=== PATIENT | female | born 1990 | race Caucasian/White ===

== ENCOUNTER 2017-06-23 16:35 | Emergency (ER) | payer OTHER ==
[2017-06-23] MEDS ORDERED: SODIUM CHLORIDE 0.9% 1,000 ML IV ONE (17:50)
[2017-06-23] MEDS ORDERED: SODIUM CHLORIDE 0.9% 1,000 ML IV SCH (18:00)
--- NOTE | 2017-06-23 18:14 | ED ---
General Adult HPI - General Chief complaint: GI Bleed Stated complaint: Hep A Exposure Time Seen by Provider: 06/23/17 17:36 Source: patient, RN notes reviewed, old records reviewed Mode of arrival: ambulatory Limitations: no limitations - History of Present Illness Initial comments: This is a 27-year-old female presents emergency Department chief complaint of diagnosis of hepatitis a. Patient reports that she was in the hospital 2 weeks before [place] diagnosed with pneumonia. She states she got a letter shortly afterward stating that she was positive for hepatitis A. Patient reports that she's had occasional diarrhea and generally feels ill. She states that [facility]. She informed them of a possible exposure to hepatitis A today and they sent her here for further evaluation. Patient reports that she's had some occasional diarrhea. Denies any vomiting, fevers or chills. She reports that she did get over pneumonia recently and has been doing somewhat better since that time. Patient is [facility] facility for history of heroin, cocaine, benzodiazepines and marijuana. - Related Data Home Medications Medication Instructions Recorded Confirmed No Known Home Medications [No 06/23/17 06/23/17 Known Home Medications] Allergies Allergy/AdvReac Type Severity Reaction Status Date / Time No Known Allergies Allergy Verified 06/23/17 18:51 Review of Systems ROS Statement: Those systems with pertinent positive or pertinent negative responses have been documented in the HPI. ROS Other: All systems not noted in ROS Statement are negative. Past Medical History Past Medical History: Pneumonia History of Any Multi-Drug Resistant Organisms: None Reported Past Surgical History: No Surgical Hx Reported Past Psychological History: No Psychological Hx Reported Smoking Status: Current every day smoker Past Alcohol Use History: None Reported Past Drug Use History: Heroin, IV Drug Use, Marijuana, Opiates General Exam - General Exam Comments Initial Comments: Well-appearing 27-year-old female. No distress. Limitations: no limitations General appearance: alert, in no apparent distress Head exam: Present: atraumatic, normocephalic, normal inspection Eye exam: Present: normal appearance, PERRL, EOMI. Absent: scleral icterus, conjunctival injection, periorbital swelling ENT exam: Present: normal exam, mucous membranes moist Neck exam: Present: normal inspection. Absent: tenderness, meningismus, lymphadenopathy Respiratory exam: Present: normal lung sounds bilaterally. Absent: respiratory distress, wheezes, rales, rhonchi, stridor Cardiovascular Exam: Present: regular rate, normal rhythm, normal heart sounds. Absent: systolic murmur, diastolic murmur, rubs, gallop, clicks GI/Abdominal exam: Present: soft, normal bowel sounds. Absent: distended, tenderness, guarding, rebound, rigid Extremities exam: Present: normal inspection, full ROM, normal capillary refill. Absent: tenderness, pedal edema, joint swelling, calf tenderness Back exam: Present: normal inspection Neurological exam: Present: alert, oriented X3, CN II-XII intact Psychiatric exam: Present: normal affect, normal mood Skin exam: Present: warm, dry, intact, normal color. Absent: rash Course Vital Signs 06/23/17 17:10 Temperature 98.2 F Pulse Rate 91 Respiratory 16 Rate Blood Pressure 119/72 O2 Sat by Pulse 100 Oximetry Medical Decision Making - Medical Decision Making This patient is a 27-year-old female presents today with possible exposure for hepatitis A. Patient was sent here from [facility] with a history of a letter given to her 2 weeks prior to [place] stating that she has positive for hepatitis A. At the same patient complained of some mild diarrhea. She also been Gen. fatigue and malaise. At this time I did complete some hammering give patient IV fluids. Patient liver enzymes are mildly elevated but no significant signs of acute hepatitis. Patient is not jaundiced. She has no abdominal tenderness and otherwise appears clinically well. I did do a send out hepatitis panel. At this time we're unable to get those results for approximately 2-3 days. I discussed the patient is not acutely symptomatic for hepatitis A. Discussed that she is out of the 2 week timeframe where you concerned for exposure to it. Patient's case discussed with Dr. Rodrigues. He recommended sending her back to [facility] will follow-up with the hepatitis panel. [facility] would not accept the patient that due to the unconfirmed diagnosis. Patient does not have any Lasix to stay in this area. We tried multiple times to contact [facility] for the patient to be able to get her things and they were on cooperative. Patient will be discharged at this time family will be picking her up. Patient advised to follow-up here a few days in regards to the hepatitis panel. Discussed that [facility]. - Lab Data Result diagrams: 06/23/17 18:18 06/23/17 18:18 Lab Results 06/23/17 06/23/17 Range/Units 18:18 18:18 WBC 10.3 (3.8-10.6) k/uL RBC 4.32 (3.80-5.40) m/uL Hgb 12.4 (11.4-16.0) gm/dL Hct 38.9 (34.0-46.0) % MCV 90.2 (80.0-100.0) fL MCH 28.7 (25.0-35.0) pg MCHC 31.8 (31.0-37.0) g/dL RDW 16.5 H (11.5-15.5) % Plt Count 322 (150-450) k/uL Neutrophils % 74 % Lymphocytes % 20 % Monocytes % 5 % Eosinophils % 0 % Basophils % 0 % Neutrophils # 7.6 (1.3-7.7) k/uL Lymphocytes # 2.0 (1.0-4.8) k/uL Monocytes # 0.5 (0-1.0) k/uL Eosinophils # 0.0 (0-0.7) k/uL Basophils # 0.0 (0-0.2) k/uL Anisocytosis Slight Sodium 138 (137-145) mmol/L Potassium 4.3 (3.5-5.1) mmol/L Chloride 101 (98-107) mmol/L Carbon Dioxide 27 (22-30) mmol/L Anion Gap 10 mmol/L BUN 11 (7-17) mg/dL Creatinine 0.60 (0.52-1.04) mg/dL Est GFR (MDRD) Af Amer >60 (>60 ml/min/1.73 sqM) Est GFR (MDRD) Non-Af >60 (>60 ml/min/1.73 sqM) Glucose 158 H (74-99) mg/dL Calcium 9.6 (8.4-10.2) mg/dL Total Bilirubin 0.3 (0.2-1.3) mg/dL AST 80 H (14-36) U/L ALT 116 H (9-52) U/L Alkaline Phosphatase 120 (38-126) U/L Total Protein 7.3 (6.3-8.2) g/dL Albumin 4.1 (3.5-5.0) g/dL Disposition Clinical Impression: Exposure to hepatitis A Disposition: HOME SELF-CARE Condition: Good Instructions: Hepatitis A (ED) Additional Instructions: Patient was to wash her hands. Increase her fluid intake. Follow-up with primary care provider. Return for any worsening signs or symptoms. Referrals: None,Stated [Primary Care Provider] - 1-2 days Time of Disposition: 20:04
[2017-06-23 18:57] LABS: Anisocytosis Slight; Basophils % (A) 0 %; Eosinophils % (A) 0 %; HCT 38.9 % (34.0-46.0); HGB 12.4 gm/dL (11.4-16.0); Lymphocytes % (A) 20 %; MCH 28.7 pg (25.0-35.0); MCHC 31.8 g/dL (31.0-37.0); MCV 90.2 fL (80.0-100.0); Mean Platelet Volume 7.8; Monocytes # (A) 0.5 k/uL (0-1.0); Monocytes % (A) 5 %; Neutrophils # (A) 7.6 k/uL (1.3-7.7); Neutrophils % (A) 74 %; Platelet Count 322 k/uL (150-450); RBC 4.32 m/uL (3.80-5.40); RDW 16.5 % (11.5-15.5); WBC 10.3 k/uL (3.8-10.6)
[2017-06-23 19:14] LABS: ALT 116 U/L (9-52); AST 80 U/L (14-36); Albumin 4.1 g/dL (3.5-5.0); Alkaline Phosphatase 120 U/L (38-126); Anion Gap 10 mmol/L; Blood Urea Nitrogen 11 mg/dL (7-17); Calcium 9.6 mg/dL (8.4-10.2); Carbon Dioxide 27 mmol/L (22-30); Chloride 101 mmol/L (98-107); Glucose 158 mg/dL (74-99); Potassium 4.3 mmol/L (3.5-5.1); Sodium 138 mmol/L (137-145); Total Bilirubin 0.3 mg/dL (0.2-1.3); Total Protein 7.3 g/dL (6.3-8.2)
[2017-06-23] MEDS ORDERED: HEPATITIS A VIRUS VACCINE/PF 1ML SYRG IM ONE (19:50)
[2017-06-23 22:13] VITALS: BP 112/63; PULSE 59; RESP 18; TEMP 98.3
[2017-06-24 02:06] LABS: Hepatitis A Antibody IgM Non-Reactive (Non-Reactive); Hepatitis B Core IgM Non-Reactive (Non-Reactive)
== END 2017-06-23 22:14 | disposition home or self-care (01) ==
LOC: EC 16:35
DX: Z20.5 Contact with and (suspected) exposure to viral hepatitis (principal); K92.2 Gastrointestinal hemorrhage, unspecified; F17.200 Nicotine dependence, unspecified, uncomplicated
CPT/HCPCS: 36415; 80053; 80074; 85025; 90632; 96360; 96361; 96374; 99285